=== PATIENT | female | born 1990 | race African-American/Black ===

== ENCOUNTER 2016-08-12 00:04 | Emergency (ER) | payer MEDICAID ==
[2016-08-12] MEDS ORDERED: CEPHALEXIN 500 MG CAPSULE PO ONE (05:31)
--- NOTE | 2016-08-12 05:31 | ER Document Report ---
ED Skin Rash/Insect Bite/Abscs - General Mode of Arrival: Ambulatory Information source: Patient TRAVEL OUTSIDE OF THE [place] IN LAST 30 DAYS: No - HPI Patient complains to provider of: Tender/swollen area - General Chief Complaint: Abscess Stated Complaint: POSSIBLE ABSCESS Time Seen by Provider: 08/12/16 05:22 Notes: Patient is a 25 year old female who presents to the emergency department complaining of an abscess between her buttocks. Patient states she noticed the tender area 3 days ago and squeezed it producing pus and bloody drainage. Patient has been coving the abscess with a band-aid. Patient also complains of vaginal discharge. Patient denies fever. (COLE TAY) - Related Data Allergies/Adverse Reactions: ibuprofen [From Motrin] Allergy (Intermediate, Verified 08/12/16 00:14) rash tramadol [Tramadol] Allergy (Mild, Verified 08/12/16 00:14) rash clindamycin [Clindamycin] Allergy (Verified 08/12/16 00:14) fluoxetine HCl [From Prozac] Allergy (Verified 08/12/16 00:14) hydrocodone bitartrate [From Vicodin] Allergy (Verified 08/12/16 00:14) rash sertraline HCl [From Zoloft] Adverse Reaction (Verified 08/12/16 00:14) Dizziness Sulfa (Sulfonamide Antibiotics) Adverse Reaction (Verified 08/12/16 00:14) rash, swelling Past Medical History - General Information source: Patient - Social History Smoking Status: Current Every Day Smoker Chew tobacco use (# tins/day): No Frequency of alcohol use: None Drug Abuse: None Family History: Reviewed & Not Pertinent Musculoskeltal Medical History: Reports Hx Arthritis, Reports Hx Musculoskeletal Deformity - chronic back pain Skin Medical History: Reports Hx Cellulitis Psychiatric Medical History: Reports: Hx Depression Past Surgical History: Reports: Hx Oral Surgery - Immunizations Immunizations up to date: Yes Hx Diphtheria, Pertussis, Tetanus Vaccination: Yes Hx Pneumococcal Vaccination: 03/10/00 Review of Systems - Review of Systems Constitutional: denies: Fever EENT: No symptoms reported Cardiovascular: No symptoms reported Respiratory: No symptoms reported Gastrointestinal: No symptoms reported Genitourinary: No symptoms reported Female Genitourinary: See HPI, Vaginal discharge Musculoskeletal: No symptoms reported Skin: See HPI, Lesions Hematologic/Lymphatic: No symptoms reported Neurological/Psychological: No symptoms reported -: Yes All other systems reviewed and negative Physical Exam - Vital signs Vitals: Temp Pulse BP Pulse Ox 98.1 F 89 137/72 H 98 08/12/16 00:15 08/12/16 00:15 08/12/16 00:15 08/12/16 00:15 - Notes Notes: GENERAL: Alert, interacts well. No acute distress. Pleasant. HEAD: Normocephalic, atraumatic. EYES: Pupils equal, round, and reactive to light. Extraocular movements intact. ENT: Oral mucosa moist, tongue midline. NECK: Full range of motion. Supple. Trachea midline. LUNGS: No respiratory distress. EXTREMITIES: Moves all 4 extremities spontaneously. NEUROLOGICAL: Alert and oriented x3. Normal speech. PSYCH: Normal affect, normal mood. SKIN: Warm, dry, normal turgor. Slightly indurated area on right buttock around level of rectum that is tender to palpation, no erythema, no fluctuance, no active discharge. (COLE TAY) Does not communicate with the rectum. (ALISA MEADOWS) Course - Re-evaluation Re-evalutation: 08/12/16 05:32 no evidence of abscess remaining, willl treat residual induration as possible remaining cellulitis and treat with keflex. d/c to home. (ALISA MEADOWS) - Vital Signs Vital signs: Temp Pulse Resp BP Pulse Ox 98.1 F 89 137/72 H 98 08/12/16 00:15 08/12/16 00:15 08/12/16 00:15 08/12/16 00:15 Discharge - Discharge Clinical Impression: Cellulitis of right buttock, Elevated blood pressure reading Condition: Stable Disposition: HOME, SELF-CARE Additional Instructions: Epsom Salt Soaks Soak the wound area in a container of warm epsom salt water. If you can't get the wound area into a bucket or knutson, use a folded towel soaked in the epsom salt solution and apply to the area. Use clean hot tap water (about the temperature of a very warm bath), mixing in about one (1) teaspoon for every pint of water. Two gallon --> 16 teaspoons Epsom Salts One gallon --> 8 teaspoons Epsom Salts Two quarts --> 4 teaspoons Epsom Salts One quart --> 2 teaspoons Epsom Salts Soak the wound for about 20 minutes while gently moving it around in the water. Repeat this four (4) times a day. Prescriptions: Cephalexin Monohydrate [Keflex 500 mg Capsule] 500 mg PO QID #28 capsule Scribe Attestation: 08/12/16 06:01 I personally performed the services described in the documentation, reviewed and edited the documentation which was dictated to the scribe in my presence, and it accurately records my words and actions. (ALISA MEADOWS) Scribe Documentation - Scribe Written by Koby:: koby Lee, 08/12/16, 1725 acting as scribe for :: Fany
[2016-08-12 06:34] VITALS: BP 116/74
== END 2016-08-12 05:45 | disposition home or self-care (01) ==
LOC: ER 00:04
DX: L03.317 Cellulitis of buttock (principal); N89.8 Other specified noninflammatory disorders of vagina; R03.0 Elevated blood-pressure reading, without diagnosis of hypertension; F17.200 Nicotine dependence, unspecified, uncomplicated; Z88.6 Allergy status to analgesic agent; Z88.5 Allergy status to narcotic agent; Z88.1 Allergy status to other antibiotic agents; Z88.8 Allergy status to other drugs, medicaments and biological substances
CPT/HCPCS: 99282

== ENCOUNTER 2018-09-21 01:14 | Emergency (ER) | payer MEDICAID ==
--- NOTE | 2018-09-21 02:47 | ER Document Report ---
ED General - General Chief Complaint: Shortness Of Breath Stated Complaint: SHORTNESS OF BREATH Time Seen by Provider: 09/21/18 02:27 Mode of Arrival: Ambulatory Information source: Patient Notes: Patient is a 27-year-old female presents emergency department chief complaint of sudden onset chest pain shortness of breath that woke her up from her sleep approximately 40 minutes prior to arrival. Patient reports chest pain is located on the right side of her chest, worse with a deep breath. She also reports epigastric pain. She denies having history of this in the past. She denies any nausea, vomiting, diarrhea or fevers. She denies any history of DVT or PE, has not had recent surgery, recent travel. TRAVEL OUTSIDE OF THE [place] IN LAST 30 DAYS: No - Related Data Allergies/Adverse Reactions: ibuprofen [From Motrin] Allergy (Intermediate, Verified 09/22/18 07:29) rash tramadol [Tramadol] Allergy (Mild, Verified 09/22/18 07:29) rash clindamycin [Clindamycin] Allergy (Verified 09/22/18 07:29) fluoxetine HCl [From Prozac] Allergy (Verified 09/22/18 07:29) hydrocodone bitartrate [From Vicodin] Allergy (Verified 09/22/18 07:29) rash sertraline HCl [From Zoloft] Adverse Reaction (Verified 09/22/18 07:29) Dizziness Sulfa (Sulfonamide Antibiotics) Adverse Reaction (Verified 09/22/18 07:29) rash, swelling Past Medical History - General Information source: Patient - Social History Smoking Status: Never Smoker Frequency of alcohol use: None Drug Abuse: None Family History: Reviewed & Not Pertinent Renal/ Medical History: Denies: Hx Peritoneal Dialysis Musculoskeletal Medical History: Reports Hx Arthritis, Reports Hx Musculoskeletal Deformity - chronic back pain Skin Medical History: Reports Hx Cellulitis Psychiatric Medical History: Reports: Hx Depression Past Surgical History: Reports: Hx Oral Surgery - Immunizations Immunizations up to date: Yes Hx Diphtheria, Pertussis, Tetanus Vaccination: Yes Hx Pneumococcal Vaccination: 03/10/00 Review of Systems - Review of Systems Constitutional: No symptoms reported EENT: No symptoms reported Cardiovascular: Chest pain Respiratory: No symptoms reported Gastrointestinal: Abdominal pain Genitourinary: No symptoms reported Female Genitourinary: No symptoms reported Musculoskeletal: No symptoms reported Skin: No symptoms reported Hematologic/Lymphatic: No symptoms reported Neurological/Psychological: No symptoms reported Physical Exam - Vital signs Vitals: Temp Pulse Resp BP Pulse Ox 98.0 F 104 H 22 H 124/101 H 97 09/21/18 01:20 09/21/18 01:20 09/21/18 01:20 09/21/18 01:20 09/21/18 01:20 - Notes Notes: PHYSICAL EXAMINATION: GENERAL: Well-appearing, well-nourished and in no acute distress. HEAD: Atraumatic, normocephalic. EYES: Pupils equal round and reactive to light, extraocular movements intact, conjunctiva are normal. ENT: Nares patent, oropharynx clear without exudates. Moist mucous membranes. NECK: Normal range of motion, supple without lymphadenopathy LUNGS: Breath sounds clear to auscultation bilaterally and equal. No wheezes rales or rhonchi. HEART: Regular rate and rhythm without murmurs ABDOMEN: Soft, nondistended abdomen. Tenderness to palpation to the epigastric area and left upper quadrant. No guarding, no rebound. No masses appreciated. Female : No CVA tenderness Musculoskeletal: Normal range of motion, no pitting or edema. No cyanosis. NEUROLOGICAL: Cranial nerves grossly intact. Normal speech, normal gait. Normal sensory, motor exams PSYCH: Normal mood, normal affect. SKIN: Warm, Dry, normal turgor, no rashes or lesions noted. Course - Re-evaluation Re-evalutation: Laboratory 09/21/18 09/21/18 09/21/18 03:10 03:10 03:10 WBC 7.1 RBC 4.16 Hgb 13.1 Hct 37.9 MCV 91 MCH 31.5 MCHC 34.5 RDW 13.1 Plt Count 216 Seg Neutrophils % 58.7 Lymphocytes % 33.8 Monocytes % 6.2 Eosinophils % 0.8 Basophils % 0.5 Absolute Neutrophils 4.2 Absolute Lymphocytes 2.4 Absolute Monocytes 0.4 Absolute Eosinophils 0.1 Absolute Basophils 0.0 D-Dimer Sodium 140.2 Potassium 4.0 Chloride 106 Carbon Dioxide 25 Anion Gap 9 BUN 9 Creatinine 0.83 Est GFR ( Amer) > 60 Est GFR (Non-Af Amer) > 60 Glucose 106 Calcium 9.8 Total Bilirubin 0.7 Direct Bilirubin 0.6 H Neonat Total Bilirubin Not Reportable Neonat Direct Bilirubin Not Reportable Neonat Indirect Bili Not Reportable AST 388 H ALT 465 H Alkaline Phosphatase 153 H Creatine Kinase 111 Troponin I < 0.012 Total Protein 7.2 Albumin 4.2 Lipase 09/21/18 09/21/18 03:10 03:10 WBC RBC Hgb Hct MCV MCH MCHC RDW Plt Count Seg Neutrophils % Lymphocytes % Monocytes % Eosinophils % Basophils % Absolute Neutrophils Absolute Lymphocytes Absolute Monocytes Absolute Eosinophils Absolute Basophils D-Dimer 0.45 Sodium Potassium Chloride Carbon Dioxide Anion Gap BUN Creatinine Est GFR ( Amer) Est GFR (Non-Af Amer) Glucose Calcium Total Bilirubin Direct Bilirubin Neonat Total Bilirubin Neonat Direct Bilirubin Neonat Indirect Bili AST ALT Alkaline Phosphatase Creatine Kinase Troponin I Total Protein Albumin Lipase 159.7 Abdomen Ultrasound 09/21/18 02:45 IMPRESSION: Fatty infiltrative change to the liver. Cholelithiasis. The CBD is prominent at 10 mm. Could consider further assessment with dedicated MRCP or ERCP copyright 2011 [employer]- All Rights Reserved Chest X-Ray 09/21/18 02:45 IMPRESSION: No evidence of acute intrathoracic disease. 09/21/18 06:[address] Herring, general surgery who recommends ordering an MRCP at our facility at this time. Orders placed, patient will be handed off to my colleague, KRISTEN Spence at 0800. - Vital Signs Vital signs: Temp Pulse Resp BP Pulse Ox 98.0 F 104 H 19 118/92 H 97 09/21/18 01:20 09/21/18 01:20 09/21/18 13:00 09/21/18 13:00 09/21/18 13:00 - Laboratory Result Diagrams: 09/21/18 03:10 09/21/18 03:10 Laboratory results interpreted by me: 09/21/18 09/21/18 03:10 08:27 Direct Bilirubin 0.6 H AST 388 H ALT 465 H Alkaline Phosphatase 153 H Urine Bilirubin SMALL H Urine Urobilinogen 4.0 H Discharge - Discharge Clinical Impression: Cholelithiasis, Abdominal pain, Transaminitis Condition: Poor Disposition: AGAINST MEDICAL ADVICE Instructions: Gallbladder Disease ([facility]) Additional Instructions: return if you change your mind about having your gallbladder surgically removed as discussed.
--- NOTE | 2018-09-21 03:13 | RADIOLOGY REPORT (SQ) ---
EXAM DESCRIPTION: X-ray single view chest. CLINICAL HISTORY: 27 years Female, chest pain/sob COMPARISON: PA chests performed on 04/03/2015 and 07/20/2014 TECHNIQUE: Single AP portable x-ray view of the chest performed on 09/21/2018 at 2:57 AM FINDINGS: The lungs are well expanded and are clear. There is no evidence of a pneumothorax. The cardiac silhouette appears slightly prominent likely related to the portable technique. The mediastinal contours are normal. No acute osseous abnormality is identified. No focal soft tissue abnormalities are seen. Lines and tubes: None. IMPRESSION: No evidence of acute intrathoracic disease.
[2018-09-21 03:35] LABS: ABSOLUTE EOSINOPHILS # (AUTO) 0.1 10^3/uL (0.0-0.6); ABSOLUTE LYMPHOCYTES (AUTO) 2.4 10^3/uL (0.5-4.7); ABSOLUTE MONOCYTES (AUTO) 0.4 10^3/uL (0.1-1.4); ABSOLUTE NEUT (AUTO) 4.2 10^3/uL (1.7-8.2); BASOPHILS % (AUTO) 0.5 % (0-2); EOSINOPHILS % (AUTO) 0.8 % (0-6); HEMATOCRIT 37.9 % (36.0-47.0); HEMOGLOBIN 13.1 g/dL (12.0-15.5); LYMPHOCYTES % (AUTO) 33.8 % (13-45); MEAN CORPUSCULAR HEMOGLOBIN 31.5 pg (27.0-33.4); MEAN CORPUSCULAR HGB CONC 34.5 g/dL (32.0-36.0); MEAN CORPUSCULAR VOLUME 91 fl (80-97); MONOCYTES % (AUTO) 6.2 % (3-13); PLATELET COUNT 216 10^3/uL (150-450); RED BLOOD COUNT 4.16 10^6/uL (3.72-5.28); RED CELL DISTRIBUTION WIDTH 13.1 % (11.5-14.0); SEGMENTED NEUTROPHILS % (AUTO) 58.7 % (42-78); TOTAL CELLS COUNTED % (AUTO) 100 %; WHITE BLOOD COUNT 7.1 10^3/uL (4.0-10.5)
[2018-09-21 03:55] LABS: ALANINE AMINOTRANSFERASE 465 U/L (9-52); ALBUMIN 4.2 g/dL (3.5-5.0); ALKALINE PHOSPHATASE 153 U/L (38-126); ANION GAP 9 (5-19); ASPARTATE AMINO TRANSFERASE 388 U/L (14-36); BILIRUBIN,DIRECT 0.6 mg/dL (0.0-0.4); BILIRUBIN,TOTAL 0.7 mg/dL (0.2-1.3); BLOOD UREA NITROGEN 9 mg/dL (7-20); CALCIUM 9.8 mg/dL (8.4-10.2); CARBON DIOXIDE 25 mmol/L (22-30); CHLORIDE 106 mmol/L (98-107); CREATINE KINASE 111 U/L (30-135); GLUCOSE 106 mg/dL (75-110); SODIUM 140.2 mmol/L (137-145); TOTAL PROTEIN 7.2 g/dL (6.3-8.2)
--- NOTE | 2018-09-21 04:26 | RADIOLOGY REPORT (SQ) ---
EXAM DESCRIPTION: US ABDOMEN LIMITED COMPLETED DATE/TME: 09/21/2018 02:45 CLINICAL HISTORY: 27 years, Female, epigastric pain/shortness of breath COMPARISON: None. TECHNIQUE: Limited right upper quadrant ultrasound LIMITATIONS: None. FINDINGS: Diffusely echogenic appearance to the liver consistent with diffuse fatty infiltrative change. Cholelithiasis. No gallbladder wall thickening or pericholecystic fluid. Negative sonographic Briggs sign. The CBD is prominent at 10 mm. The visualized abdominal aorta, inferior vena cava, pancreas, right kidney are unremarkable. No ascites IMPRESSION: Fatty infiltrative change to the liver. Cholelithiasis. The CBD is prominent at 10 mm. Could consider further assessment with dedicated MRCP or ERCP copyright 2010 [employer]- All Rights Reserved
[2018-09-21] MEDS ORDERED: ONDANSETRON HCL INJ/PF 4 MG/2 ML SDV IV ONE ×2 (04:35→08:15)
[2018-09-21] MEDS ORDERED: MORPHINE SULFATE 10 MG/ML INJ IV ONE ×3 (04:35→13:13)
--- NOTE | 2018-09-21 08:18 | ER Document Report ---
Doctor's Note Notes: 09/21/18 08:16 This is a 27-year-old female signed out to me by the overnight [facility] [employer] [place], pending MRCP results after her abdominal ultrasound showed a dilated common bile duct with elevated LFTs for final dispo. General surgery here requested MRCP and to call back if negative. Otherwise if MRCP shows common bile duct stone will likely transfer to a facility that has GI and ERCP capability. Patient was kept n.p.o. Last po intake was 8 PM. please refer to [facility] [employer] [place]'s note for full h and p. as documented, this was my only involvement in pt care. Abdomen Ultrasound 09/21/18 02:45 IMPRESSION: Fatty infiltrative change to the liver. Cholelithiasis. The CBD is prominent at 10 mm. Could consider further assessment with dedicated MRCP or ERCP copyright 2011 [employer]- All Rights Reserved Chest X-Ray 09/21/18 02:45 IMPRESSION: No evidence of acute intrathoracic disease. Abdomen MRI 09/21/18 10:55 IMPRESSION: Cholelithiasis. Mild dilatation of the common bile duct without visualized common bile duct stone. pt's MRCP was completed and showed no CBD stone only cholelithiasis and a mildly dilated cbd per rad and reviewed by me. pt informed of her findings. When pt found out independent crop consultant surgeon was dr anaya she stated due to personal reasons and prior complications after dr anaya did surgery on her grandmother per pt, that she would under no circumstances be operated on by him and asked if another surgeon was available to take out her gb today or if she could be transferred or come back another day. I discussed this with ED attending, dr javier, who advised to call independent crop consultant surgeon, dr anaya, and inform him of this and follow his recommendations. i did speak with independent crop consultant surgeon dr anaya, who advised he was the only surgeon avail at this facility today and that pt needed her gb out. he advised if pt didn't want him to operate on her to achieve this she could be transferred to another facility at her expense or sign out ama and come back another day when he wasn't independent crop consultant. pt didn't want to have to pay for her own transfer to another facility with surgery avail today and signed out AMA. she fully understood the risks of signing out AMA which included worst case scenario being and still signed out AMA despite my best efforts to get her to stay and states she will return tomorrow when another surgeon is on shift to have her gb taken out. pt is of sound mind, appears clinically sober, is able to make her own medical decisions, ambulates with a normal gate, and remained pleasant during her stay. pt signed out AMA. please refer to the signed form in her chart of this. vss. she is otherwise well appearing. has some bouts of apparent pain but is tolerating po. serial abd exams remain benign. labs reviewed and imaging reviewed. case discussed with ed attending, dr javier, who directed and agrees with plan of care. Clinical impression: 1. acute transaminitis 2. acute cholelithiasis 3. acute abdominal pain 4. left against medical advice 5. acute dilatation of common bile duct 09/23/18 20:37 Discharge - Discharge Clinical Impression: Transaminitis, Left against medical advice Cholelithiasis Qualifiers: Cholelithiasis location: gallbladder Cholecystitis presence: with cholecystitis Cholecystitis acuity: acute Biliary obstruction: without biliary obstruction Qualified Code(s): K80.00 - Calculus of gallbladder with acute cholecystitis without obstruction Abdominal pain Qualifiers: Abdominal location: upper abdomen, unspecified Qualified Code(s): R10.10 - Upper abdominal pain, unspecified Condition: Poor Disposition: AGAINST MEDICAL ADVICE Instructions: Gallbladder Disease ([facility]) Additional Instructions: return if you change your mind about having your gallbladder surgically removed as discussed or if you have any new, worsening, or concerning symptoms. f/u with your pcp in 1-2 days. return for any worsening symptoms without fail again as discussed. bland diet. drink plenty of fluids.
[2018-09-21 08:51] LABS: APPEARANCE,URINE CLEAR; BILIRUBIN,URINE SMALL (NEGATIVE); COLOR,URINE AMBER; GLUCOSE, URINE NEGATIVE (NEGATIVE); KETONES,URINE NEGATIVE (NEGATIVE); LEUKOCYTE ESTERASE,URINE NEGATIVE (NEGATIVE); NITRITE,URINE NEGATIVE (NEGATIVE); PROTEIN,URINE NEGATIVE (NEGATIVE); URINE SPECIFIC GRAVITY 1.021
--- NOTE | 2018-09-21 11:33 | RADIOLOGY REPORT (SQ) ---
EXAM DESCRIPTION: MRI ABDOMEN WITHOUT COMPLETED DATE/TIME: 09/21/2018 10:55 am REASON FOR STUDY: MRCP, abd pain, dilated CBD COMPARISON: None. TECHNIQUE: Noncontrast MRCP. Source and MIP images reviewed. LIMITATIONS: Motion. FINDINGS: GALLBLADDER: Gallstones. INTRAHEPATIC DUCTS: Nondilated. EXTRAHEPATIC DUCTS: Common duct 6.5 mm in the pancreatic head. No filling defects. PANCREAS: Generally homogeneous, no gross mass or significant signal alteration. No surrounding infl ammatory changes or fluid. Pancreatic duct is normal. LIVER, SPLEEN, KIDNEYS, ADRENALS: No significant abnormality. VESSELS: No aneurysm. LUNG BASES: Grossly clear. OTHER: No other significant finding. IMPRESSION: Cholelithiasis. Mild dilatation of the common bile duct without visualized common bile duct stone. TECHNICAL DOCUMENTATION: JOB ID: [id number] [employer]- All Rights Reserved Reading location - IP/workstation name: [email or web address]
[2018-09-21] MEDS ORDERED: NICOTINE 21 MG/24 HR PATCH.TD24 TD ONE (13:14)
[2018-09-21 14:13] VITALS: BP 118/92
--- NOTE | 2018-09-22 19:07 | EKG REPORT ---
SEVERITY:- BORDERLINE ECG - SINUS RHYTHM BORDERLINE T ABNORMALITIES, INFERIOR LEADS : Confirmed by: Malik Howe MD 22-Sep-2018 19:06:10
== END 2018-09-21 14:15 | disposition left against medical advice (07) ==
LOC: ER 01:14
DX: K80.20 Calculus of gallbladder without cholecystitis without obstruction (principal); R74.0 Nonspecific elevation of levels of transaminase and lactic acid dehydrogenase [LDH]; R07.9 Chest pain, unspecified; R06.02 Shortness of breath; Z88.6 Allergy status to analgesic agent; Z88.3 Allergy status to other anti-infective agents; Z88.2 Allergy status to sulfonamides
CPT/HCPCS: 93005; 96376; 99285; 96374; 96375; 36415; 82550; 83690; 85025; 81025; 80053; 81001; 84484; 85379; 74181; 71045; 76705; 93010; J2270; J2405; J3490

== ENCOUNTER 2018-09-22 07:28 | Inpatient (IN) | payer MEDICAID ==
[2018-09-22] MEDS ORDERED: SUCCINYLCHOLINE CHLORIDE INJ 200 MG/10 ML VIAL ONE ×2 (08:17→08:19)
[2018-09-22] MEDS ORDERED: ROCURONIUM BROMIDE INJ 50 MG/5 ML VIAL IV ONE (08:17)
--- NOTE | 2018-09-22 09:49 | ER Document Report ---
ED GI/ - General Chief Complaint: Abdominal Pain Stated Complaint: ABDOMINAL PAIN Time Seen by Provider: 09/22/18 09:27 Primary Care Provider: MANJULA CÁRDENAS MD [Primary Care Provider] - Follow up as needed Notes: Patient is complaining of abdominal pains off and on for the past 3 to 4 days. Primarily located in the right upper quadrant of the abdomen. She has not had any significant vomiting or diarrhea. Has not had any fever. Denies chest pains today. Denies any difficulty breathing. Patient was seen here yesterday for this condition and had labs done which showed some modest elevation of her LFTs. She then had an ultrasound of the gallbladder which showed some possible dilatation of the common bile duct so an MRI was performed showing that the patient has cholelithiasis but no stones in the common bile duct. Patient was advised to be evaluated by surgery for possible gallbladder removal. She did not wish to have the surgeon on-call see her, so the patient opted to go home and return today to have a different surgeon evaluate her. Patient says her symptoms have not changed. Still having the same amount of pain. No fevers. TRAVEL OUTSIDE OF THE [place] IN LAST 30 DAYS: No - Related Data Allergies/Adverse Reactions: ibuprofen [From Motrin] Allergy (Intermediate, Verified 09/22/18 07:29) rash tramadol [Tramadol] Allergy (Mild, Verified 09/22/18 07:29) rash clindamycin [Clindamycin] Allergy (Verified 09/22/18 07:29) fluoxetine HCl [From Prozac] Allergy (Verified 09/22/18 07:29) hydrocodone bitartrate [From Vicodin] Allergy (Verified 09/22/18 07:29) rash sertraline HCl [From Zoloft] Adverse Reaction (Verified 09/22/18 07:29) Dizziness Sulfa (Sulfonamide Antibiotics) Adverse Reaction (Verified 09/22/18 07:29) rash, swelling Past Medical History - Social History Smoking Status: Current Every Day Smoker Chew tobacco use (# tins/day): No Frequency of alcohol use: None Drug Abuse: None Family History: Reviewed & Not Pertinent Patient has suicidal ideation: No Patient has homicidal ideation: No Musculoskeletal Medical History: Reports Hx Arthritis, Reports Hx Musculoskeletal Deformity - chronic back pain Skin Medical History: Reports Hx Cellulitis Psychiatric Medical History: Reports: Hx Depression, Other - Patient is an outpatient rehab for substance abuse. She says she has been Past Surgical History: Reports: Hx Oral Surgery - Immunizations Immunizations up to date: Yes Hx Diphtheria, Pertussis, Tetanus Vaccination: Yes Hx Pneumococcal Vaccination: 03/10/00 Review of Systems - Review of Systems Notes: REVIEW OF SYSTEMS: CONSTITUTIONAL : Denies fever. EENT: Denies eye, ear, nose or mouth or throat pain or other symptoms. CARDIOVASCULAR: Denies chest pain. RESPIRATORY: Denies cough, chest congestion, or shortness of breath. GASTROINTESTINAL: See HPI. GENITOURINARY: Denies difficulty or painful urinating, urinary frequency, blood in urine. Patient is on control implant. MUSCULOSKELETAL: Denies back or neck pain. Denies joint pain or swelling. SKIN: Denies rash or skin lesions. NEUROLOGICAL: Denies LOC or altered mental status. Denies headache. Denies sensory loss or motor deficits. ALL OTHER SYSTEMS REVIEWED AND NEGATIVE. Physical Exam - Vital signs Vitals: Temp Pulse Resp BP Pulse Ox 98.2 F 70 16 127/74 H 97 09/22/18 07:47 09/22/18 07:47 09/22/18 07:47 09/22/18 07:47 09/22/18 07:47 Interpretation: Normal Notes: PHYSICAL EXAMINATION: GENERAL: Well-appearing, in no acute distress. Vital signs are all normal. HEAD: Atraumatic, normocephalic. EYES: Pupils equal round and reactive to light, extraocular movements intact. ENT: oropharynx clear without exudates. Moist mucous membranes. NECK: Normal range of motion, supple. LUNGS: Breath sounds clear and equal bilaterally. HEART: Regular rate and rhythm without murmurs. ABDOMEN: Soft, tender right upper quadrant and right side of the abdomen with less tenderness on the left side of the abdomen. No true guarding. No rebound. No masses felt. BACK: No tenderness throughout entire back. EXTREMITIES: Normal range of motion without pain. NEUROLOGICAL: Normal speech, normal gait. Normal sensory, motor, and reflex exams. Awake, alert, and oriented x3. Cranial nerves normal. PSYCH: Normal mood, normal affect. SKIN: Warm, dry, no rashes. Course - Re-evaluation Re-evalutation: 09/22/18 09:[address] Herring, on-call surgeon, who will evaluate patient. Labs are being repeated. Patient is n.p.o. 09/22/18 11:20 Patient's LFTs are rising. Spoke with Dr. Herring who indicated the patient will need ERCP to make sure she does not have a stone causing the bile duct dilatation and the rising LFTs, even though her MRI does not show evidence of stones. Called [facility] for transfer, but they are at capacity and not even excepting names for a waiting list. 09/22/18 12:14 I placed a call to the transfer center at [facility] in [place] to discuss transferring the patient. Soon after that, I was able to contact Dr. Mcrae, local hairspring cutter who does ERCPs, and he said he would take care of that procedure for this patient. Patient will be admitted to the surgery service. 09/22/18 12:52 - Vital Signs Vital signs: Temp Pulse Resp BP Pulse Ox 98.2 F 70 13 121/82 100 09/22/18 07:47 09/22/18 07:47 09/22/18 09:38 09/22/18 09:38 09/22/18 09:38 - Laboratory Result Diagrams: 09/22/18 09:35 09/22/18 09:35 Laboratory results interpreted by me: 09/22/18 09:35 Total Bilirubin 1.5 H Direct Bilirubin 0.8 H AST 417 H ALT 760 H Alkaline Phosphatase 157 H Discharge - Discharge Clinical Impression: Cholelithiasis, Elevated liver function tests Condition: Stable Disposition: ADMITTED INPATIENT Admitting Provider: Surgicalist Unit Admitted: Surgical Floor Referrals: MANJULA CÁRDENAS MD [Primary Care Provider] - Follow up as needed
[2018-09-22 09:53] LABS: ABSOLUTE EOSINOPHILS # (AUTO) 0.1 10^3/uL (0.0-0.6); ABSOLUTE LYMPHOCYTES (AUTO) 2.3 10^3/uL (0.5-4.7); ABSOLUTE MONOCYTES (AUTO) 0.3 10^3/uL (0.1-1.4); ABSOLUTE NEUT (AUTO) 3.7 10^3/uL (1.7-8.2); BASOPHILS % (AUTO) 0.6 % (0-2); EOSINOPHILS % (AUTO) 1.3 % (0-6); HEMATOCRIT 38.8 % (36.0-47.0); HEMOGLOBIN 13.4 g/dL (12.0-15.5); LYMPHOCYTES % (AUTO) 35.2 % (13-45); MEAN CORPUSCULAR HEMOGLOBIN 31.3 pg (27.0-33.4); MEAN CORPUSCULAR HGB CONC 34.6 g/dL (32.0-36.0); MEAN CORPUSCULAR VOLUME 91 fl (80-97); MONOCYTES % (AUTO) 5.2 % (3-13); PLATELET COUNT 226 10^3/uL (150-450); RED BLOOD COUNT 4.29 10^6/uL (3.72-5.28); SEGMENTED NEUTROPHILS % (AUTO) 57.7 % (42-78); TOTAL CELLS COUNTED % (AUTO) 100 %; WHITE BLOOD COUNT 6.5 10^3/uL (4.0-10.5)
[2018-09-22 10:09] LABS: ALANINE AMINOTRANSFERASE 760 U/L (9-52); ALBUMIN 4.4 g/dL (3.5-5.0); ALKALINE PHOSPHATASE 157 U/L (38-126); ANION GAP 9 (5-19); ASPARTATE AMINO TRANSFERASE 417 U/L (14-36); BILIRUBIN,DIRECT 0.8 mg/dL (0.0-0.4); BILIRUBIN,TOTAL 1.5 mg/dL (0.2-1.3); BLOOD UREA NITROGEN 11 mg/dL (7-20); CALCIUM 9.4 mg/dL (8.4-10.2); CARBON DIOXIDE 27 mmol/L (22-30); CHLORIDE 104 mmol/L (98-107); GLUCOSE 89 mg/dL (75-110); LIPASE 115.1 U/L (23-300); POTASSIUM 4.1 mmol/L (3.6-5.0); SODIUM 139.9 mmol/L (137-145); TOTAL PROTEIN 7.6 g/dL (6.3-8.2)
--- NOTE | 2018-09-22 12:46 | PDOC H&P ---
History of Present Illness Admission Date/PCP: MANJULA CÁRDENAS MD 09/22/18 History of Present Illness: ERIS TRUJILLO is a 27 year old isfemalecomplaining of abdominal pains off and on for the past 3 to 4 days. Primarily located in the right upper quadrant of the abdomen. She has not had any significant vomiting or diarrhea. Has not had any fever. Denies chest pains today. Denies any difficulty breathing. Patient was seen here yesterday for this condition and had labs done which showed some modest elevation of her LFTs. She then had an ultrasound of the gallbladder which showed some possible dilatation of the common bile duct so an MRI was performed showing that the patient has cholelithiasis but no stones in the common bile duct. Patient was evaluated by surgery for possible gallbladder removal. She did not wish to have the surgeon on-call see her, so the patient opted to go home and return today to have a different surgeon evaluate her. Patient says her symptoms have not changed. Still having the same amount of pain. No fevers. Past Medical History Musculoskeltal Medical History: Reports: Arthritis [facility] Medical History: Reports: Depression, Other - Patient is an outpatient rehab for substance abuse. She says she has been Social History Smoking Status: Current Every Day Smoker Family History Family History: Reviewed & Not Pertinent Parental Family History Reviewed: Yes Children Family History Reviewed: No Sibling(s) Family History Reviewed.: No Medication/Allergy Home Medications: Buprenorphine HCl 8 mg SL DAILY 09/22/18 Clonidine HCl [Catapres] 0.1 mg PO Q12 09/22/18 Allergies/Adverse Reactions: ibuprofen [From Motrin] Allergy (Intermediate, Verified 09/22/18 07:29) rash tramadol [Tramadol] Allergy (Mild, Verified 09/22/18 07:29) rash clindamycin [Clindamycin] Allergy (Verified 09/22/18 07:29) fluoxetine HCl [From Prozac] Allergy (Verified 09/22/18 07:29) hydrocodone bitartrate [From Vicodin] Allergy (Verified 09/22/18 07:29) rash sertraline HCl [From Zoloft] Adverse Reaction (Verified 09/22/18 07:29) Dizziness Sulfa (Sulfonamide Antibiotics) Adverse Reaction (Verified 09/22/18 07:29) rash, swelling Review of Systems Constitutional: ABSENT: chills, fever(s), headache(s), weight gain, weight loss Ears: ABSENT: hearing changes Cardiovascular: ABSENT: as per HPI, chest pain, dyspnea on exertion, edema, orthropnea, palpitations, other Gastrointestinal: PRESENT: abdominal pain, nausea, vomiting Integumentary: ABSENT: as per HPI, diaphoresis, erythema, lesions, pruritus, rash, wounds, other Neurological: ABSENT: as per HPI, abnormal gait, abnormal movements, abnormal speech, confusion, convulsions, dizziness, focal weakness, frequent falls, lack of coordination, memory loss, numbness, paresthesias, restless legs, syncope, tingling, tremor(s), vertigo, weakness, other Psychiatric: ABSENT: as per HPI, anxiety, depression, hallucinations, homidical ideation, suicidal ideation, other Endocrine: ABSENT: as per HPI, cold intolerance, flushing, heat intolerance, menstrual abnormalities, polydipsia, polyphagia, polyuria, other Hematologic/Lymphatic: ABSENT: as per HPI, easy bleeding, easy bruising, lymphadenopathy, other Allergic/Immunologic: ABSENT: as per HPI, seasonal rhinorrhea, other Physical Exam Vital Signs: Temp Pulse Resp BP Pulse Ox 98.2 F 70 13 121/82 100 09/22/18 07:47 09/22/18 07:47 09/22/18 09:38 09/22/18 09:38 09/22/18 09:38 Intake & Output 09/21/18 09/22/18 09/23/18 06:59 06:59 06:59 Weight 90.9 kg General appearance: PRESENT: mild distress Head exam: PRESENT: normocephalic Eye exam: PRESENT: EOMI Mouth exam: PRESENT: moist Neck exam: PRESENT: full ROM Respiratory exam: PRESENT: clear to auscultation marguerite Cardiovascular exam: PRESENT: RRR Pulses: PRESENT: +2 pedal pulses bilateral GI/Abdominal exam: PRESENT: tenderness - ruq Rectal exam: PRESENT: deferred Extremities exam: PRESENT: full ROM Musculoskeletal exam: PRESENT: full ROM Neurological exam: PRESENT: alert, awake, oriented to person Psychiatric exam: PRESENT: anxious, appropriate affect Focused psych exam: ABSENT: catatonic, delusional, euphoric, flight of ideas, internal stimuli, paranoid, pressured speech, psychomotor agitation, restlessness, other Skin exam: ABSENT: abrasion, cyanosis, dry, erythema, intact, jaundice, mottled, normal color, pallor, petechiae, rash, skin tears, urticaria, vesicles, warm, other Results Laboratory Results: 09/22/18 09:35 09/22/18 09:35 09/22/18 09/22/18 09:35 09:35 WBC 6.5 RBC 4.29 Hgb 13.4 Hct 38.8 MCV 91 MCH 31.3 MCHC 34.6 RDW 13.0 Plt Count 226 Seg Neutrophils % 57.7 Lymphocytes % 35.2 Monocytes % 5.2 Eosinophils % 1.3 Basophils % 0.6 Absolute Neutrophils 3.7 Absolute Lymphocytes 2.3 Absolute Monocytes 0.3 Absolute Eosinophils 0.1 Absolute Basophils 0.0 Sodium 139.9 Potassium 4.1 Chloride 104 Carbon Dioxide 27 Anion Gap 9 BUN 11 Creatinine 0.88 Est GFR ( Amer) > 60 Est GFR (Non-Af Amer) > 60 Glucose 89 Calcium 9.4 Total Bilirubin 1.5 H AST 417 H ALT 760 H Alkaline Phosphatase 157 H Total Protein 7.6 Albumin 4.4 Lipase 115.1 Assessment & Plan - Diagnosis (2) Transaminitis Is this a current diagnosis for this admission?: Yes - Plan Summary Plan Summary: pt with elevated lft's increased in last 24 hrs and dilated cbc with gallstones ruq pain c/w choledocholithiasis plan will admit pt for lap zuleima after ercp pt to have ercp today or tomorrow by gi.
[2018-09-22] MEDS: POTASSI CL 20 MEQ/D5-1/2NS 1L 1,000 ML IV PRN ×2 (14:02→18:36)
[2018-09-22] MEDS: ONDANSETRON HCL INJ/PF 4 MG/2 ML SDV IV PRN (14:02)
[2018-09-22] MEDS: MORPHINE SULFATE 10 MG/ML INJ IV PRN (14:02)
[2018-09-22] MEDS ORDERED: FENTANYL CITRATE INJ/PF 100 MCG/2 ML AMPUL ONE ×2 (16:52→18:12)
[2018-09-22] MEDS ORDERED: MIDAZOLAM 2 MG/2 ML INJ ONE (16:52)
[2018-09-22] MEDS ORDERED: PROPOFOL INJ 200 MG/20 ML VIAL IV ONE (16:53)
[2018-09-22] MEDS ORDERED: ONDANSETRON HCL INJ/PF 4 MG/2 ML SDV ONE (16:53)
[2018-09-22] MEDS ORDERED: DEXAMETHASONE SOD PHOSPHATE INJ 4 MG/1 ML VIAL ONE (16:53)
[2018-09-22] MEDS ORDERED: GLUCAGON,HUMAN RECOMB 1 MG INJ ONE (16:53)
--- NOTE | 2018-09-22 18:30 | PDOC CONSULTATION ---
Consultation Consult Date: 09/22/18 Provider Consulted: CELESTINE BATISTA History of Present Illness Admission Date/PCP: 09/22/18 13:43 MANJULA CÁRDENAS MD History of Present Illness: ERIS TRUJILLO is a 27 year old female patient who was admitted to the emergency room with recurrent abdominal pain, jaundice, gallstones and dilated common bile duct. She has been having recurrent pain for the last 4 days associated with nausea but no vomiting. She was seen in the emergency room yesterday when her transaminases were elevated. She came back today now with a slightly elevated bilirubin. She has no previous history of liver disease. Past Medical History Musculoskeltal Medical History: Reports: Arthritis Psychiatric Medical History: Reports: Depression, Other - Patient is an outpatient rehab for substance abuse. She says she has been Social History Smoking Status: Current Every Day Smoker Family History Family History: Reviewed & Not Pertinent Parental Family History Reviewed: No Children Family History Reviewed: NA Sibling(s) Family History Reviewed.: NA Medication/Allergy Home Medications: Buprenorphine HCl 28 mg SL DAILY MDD 3.5 TAB 09/22/18 Clonidine HCl [Catapres] 0.1 mg PO Q12 09/22/18 Allergies/Adverse Reactions: ibuprofen [From Motrin] Allergy (Intermediate, Verified 09/22/18 07:29) rash tramadol [Tramadol] Allergy (Mild, Verified 09/22/18 07:29) rash clindamycin [Clindamycin] Allergy (Verified 09/22/18 07:29) fluoxetine HCl [From Prozac] Allergy (Verified 09/22/18 07:29) hydrocodone bitartrate [From Vicodin] Allergy (Verified 09/22/18 07:29) rash sertraline HCl [From Zoloft] Adverse Reaction (Verified 09/22/18 07:29) Dizziness Sulfa (Sulfonamide Antibiotics) Adverse Reaction (Verified 09/22/18 07:29) rash, swelling Review of Systems All systems: reviewed and no additional remarkable complaints except as stated Physical Exam Vital Signs: Temp Pulse Resp BP Pulse Ox 98.2 F 70 12 136/84 H 99 09/22/18 07:47 09/22/18 07:47 09/22/18 17:02 09/22/18 17:02 09/22/18 17:26 Intake & Output 09/21/18 09/22/18 09/23/18 06:59 06:59 06:59 Weight 90.9 kg Exam: General: Patient is alert and looks well. HEENT: There is no pallor or jaundice. PERRLA. Oropharynx normal Respiratory: No chest deformity. No respiratory distress. Chest wall palpitation was unremarkable. Breath sounds were normal Cardiovascular: Heart sounds 1 and 2 normal with no murmurs. Abdominal: Not distended. Soft and nontender. Liver and spleen not palpable. No ascites demonstrated. Bowel sounds active. Rectal examination was deferred. Extremities: No edema Neurological: Alert and oriented x4. Grossly nonfocal. Normal speech Skin: No significant rash Psychological: Normal affect Results Laboratory Results: 09/22/18 09:35 09/22/18 09:35 09/22/18 09/22/18 09:35 09:35 WBC 6.5 RBC 4.29 Hgb 13.4 Hct 38.8 MCV 91 MCH 31.3 MCHC 34.6 RDW 13.0 Plt Count 226 Seg Neutrophils % 57.7 Lymphocytes % 35.2 Monocytes % 5.2 Eosinophils % 1.3 Basophils % 0.6 Absolute Neutrophils 3.7 Absolute Lymphocytes 2.3 Absolute Monocytes 0.3 Absolute Eosinophils 0.1 Absolute Basophils 0.0 Sodium 139.9 Potassium 4.1 Chloride 104 Carbon Dioxide 27 Anion Gap 9 BUN 11 Creatinine 0.88 Est GFR ( Amer) > 60 Est GFR (Non-Af Amer) > 60 Glucose 89 Calcium 9.4 Total Bilirubin 1.5 H AST 417 H ALT 760 H Alkaline Phosphatase 157 H Total Protein 7.6 Albumin 4.4 Lipase 115.1 Assessment & Plan - Diagnosis (1) Common bile duct dilatation Is this a current diagnosis for this admission?: Yes Plan: Her symptoms, LFTs and ultrasound does suggest choledocholithiasis. The risk and benefit of an ERCP was explained to her and she is in agreement. She will u ndergo cholecystectomy thereafter (3) Elevated liver function tests Is this a current diagnosis for this admission?: Yes
--- NOTE | 2018-09-22 18:31 | Operative Report ---
Operative Report DATE OF SURGERY: 09/22/18 Operative Report: Pre-op diagnosis: Gallstones and dilated biliary duct Post-op diagnosis: Common bile duct stone Surgery: ERCP with sphincterotomy and balloon stone extraction Medications: As per anesthesia Tissue removed: None Procedure: After informed consent obtained from patient, the throat was sprayed with Hurricane and conscious sedation was achieved. The ERCP endoscope was then inserted into the esophagus blindly and advanced into the stomach. The duodenum was entered and the ampulla was identified. Using the triple-lumen sphincterotomy catheter the common bile duct was freely cannulated. A cholangiogram was obtained which showed possible filling defect in the distal common bile duct. The common bile duct and intrahepatic ducts did not appear dilated. A good sized sphincterotomy was then performed using the endocut mode. The catheter was removed over the guidewire before a 9-12 mm balloon catheter was inserted. The balloon was inflated to 12 mm in the proximal common bile duct and pulled down the duct. A 6 mm yellow stone was extracted. The duct was swept one more time. A balloon occlusion cholangiogram was normal. The pancreatic duct was intentionally not cannulated. Patient tolerated procedure well. Findings Common bile duct: Mildly dilated. Small stone extracted Intrahepatic ducts: Normal Pancreatic duct: Not cannulated Plan: Proceed with cholecystectomy OPERATION: .
[2018-09-22] MEDS ORDERED: DIPHENHYDRAMINE HCL 50 MG/ML VIAL IV PRN (18:45)
[2018-09-22] MEDS ORDERED: FENTANYL CITRATE INJ/PF 100 MCG/2 ML AMPUL IV PRN ×3 (18:45)
[2018-09-22] MEDS ORDERED: MORPHINE SULFATE 10 MG/ML INJ IV PRN (18:45)
[2018-09-22] MEDS ORDERED: OXYCODONE-ACETAMINOPHEN 5-325 MG TABLET PO PRN ×2 (18:45)
[2018-09-22] MEDS ORDERED: PROMETHAZINE HCL INJ 25 MG/1 ML VIAL IV PRN ×2 (18:45)
[2018-09-22] MEDS ORDERED: MEPERIDINE HCL/PF INJ 25 MG/1 ML DISP.SYRIN IV PRN (18:45)
[2018-09-22] MEDS ORDERED: ACETAMINOPHEN 1,000 MG/100 ML RTUPB IV ONE (18:54)
[2018-09-22] MEDS: FAMOTIDINE INJ/PF 20 MG/2 ML SDV IV SCH (21:22)
[2018-09-23] MEDS: POTASSI CL 20 MEQ/D5-1/2NS 1L 1,000 ML IV PRN ×2 (02:08→10:02)
[2018-09-23] MEDS: ONDANSETRON HCL INJ/PF 4 MG/2 ML SDV IV PRN (02:08)
[2018-09-23] MEDS: MORPHINE SULFATE 10 MG/ML INJ IV PRN ×2 (02:09→09:53)
[2018-09-23 06:28] LABS: ABSOLUTE BASOPHILS # (AUTO) 0.1 10^3/uL (0.0-0.2); ABSOLUTE LYMPHOCYTES (AUTO) 1.2 10^3/uL (0.5-4.7); ABSOLUTE MONOCYTES (AUTO) 0.3 10^3/uL (0.1-1.4); BASOPHILS % (AUTO) 0.5 % (0-2); HEMATOCRIT 42.2 % (36.0-47.0); HEMOGLOBIN 14.6 g/dL (12.0-15.5); LYMPHOCYTES % (AUTO) 12.9 % (13-45); MEAN CORPUSCULAR HEMOGLOBIN 31.4 pg (27.0-33.4); MEAN CORPUSCULAR HGB CONC 34.6 g/dL (32.0-36.0); MEAN CORPUSCULAR VOLUME 91 fl (80-97); MONOCYTES % (AUTO) 2.6 % (3-13); PLATELET COUNT 236 10^3/uL (150-450); RED BLOOD COUNT 4.66 10^6/uL (3.72-5.28); RED CELL DISTRIBUTION WIDTH 13.2 % (11.5-14.0); TOTAL CELLS COUNTED % (AUTO) 100 %; WHITE BLOOD COUNT 9.6 10^3/uL (4.0-10.5)
[2018-09-23 06:51] LABS: ALANINE AMINOTRANSFERASE 583 U/L (9-52); ALBUMIN 4.6 g/dL (3.5-5.0); ALKALINE PHOSPHATASE 146 U/L (38-126); ANION GAP 11 (5-19); ASPARTATE AMINO TRANSFERASE 189 U/L (14-36); BILIRUBIN,DIRECT 0.5 mg/dL (0.0-0.4); BLOOD UREA NITROGEN 8 mg/dL (7-20); CARBON DIOXIDE 24 mmol/L (22-30); CHLORIDE 105 mmol/L (98-107); GLUCOSE 134 mg/dL (75-110); LIPASE 78.9 U/L (23-300); POTASSIUM 4.8 mmol/L (3.6-5.0); SODIUM 139.5 mmol/L (137-145); TOTAL PROTEIN 7.9 g/dL (6.3-8.2)
[2018-09-23] MEDS: FAMOTIDINE INJ/PF 20 MG/2 ML SDV IV SCH (09:53)
--- NOTE | 2018-09-23 10:08 | RADIOLOGY REPORT (SQ) ---
EXAM DESCRIPTION: NO CHG FLUORO; ENDO CATH/BILIARY DUCT COMPLETED DATE/TIME: 09/22/2018 6:55 pm; 09/22/2018 7:04 pm REASON FOR STUDY: ERCP IN OR COMPARISON: None. FLUOROSCOPY TIME: 1.3 minutes 6 images saved to PACS. TECHNIQUE: Intra-operative images acquired during surgical procedure to evaluate progress. NUMBER OF IMAGES: 6 LIMITATIONS: None. FINDINGS: Patient undergoing endoscopic biliary manipulation. Please correlate with operative note. IMPRESSION: IMAGE(S) OBTAINED DURING PROCEDURE. COMMENT: Quality ID 145: Final reports for procedures using fluoroscopy that document radiation exp osure indices, or exposure time and number of fluorographic images (if radiation exposure indices are not available) Please consult full operative report of the attending physician for description of the procedure. TECHNICAL DOCUMENTATION: JOB ID: [id number] [employer]- All Rights Reserved Reading location - IP/workstation name: [email or web address]
--- NOTE | 2018-09-23 10:08 | RADIOLOGY REPORT (SQ) ---
EXAM DESCRIPTION: NO CHG FLUORO; ENDO CATH/BILIARY DUCT COMPLETED DATE/TIME: 09/22/2018 6:55 pm; 09/22/2018 7:04 pm REASON FOR STUDY: ERCP IN OR COMPARISON: None. FLUOROSCOPY TIME: 1.3 minutes 6 images saved to PACS. TECHNIQUE: Intra-operative images acquired during surgical procedure to evaluate progress. NUMBER OF IMAGES: 6 LIMITATIONS: None. FINDINGS: Patient undergoing endoscopic biliary manipulation. Please correlate with operative note. IMPRESSION: IMAGE(S) OBTAINED DURING PROCEDURE. COMMENT: Quality ID [id number]: Final reports for procedures using fluoroscopy that document radiation exp osure indices, or exposure time and number of fluorographic images (if radiation exposure indices are not available) Please consult full operative report of the attending physician for description of the procedure. TECHNICAL DOCUMENTATION: JOB ID: [id number] [employer]- All Rights Reserved Reading location - IP/workstation name: [email or web address]
[2018-09-23] MEDS ORDERED: FENTANYL CITRATE INJ/PF 100 MCG/2 ML AMPUL ONE (11:03)
[2018-09-23] MEDS ORDERED: DEXAMETHASONE SOD PHOSPHATE INJ 4 MG/1 ML VIAL ONE (11:03)
[2018-09-23] MEDS ORDERED: MIDAZOLAM 2 MG/2 ML INJ ONE (11:03)
[2018-09-23] MEDS ORDERED: ONDANSETRON HCL INJ/PF 4 MG/2 ML SDV ONE (11:03)
[2018-09-23] MEDS ORDERED: HYDROMORPHONE HCL INJ/PF 2 MG/ML AMPULE ONE (11:03)
[2018-09-23] MEDS ORDERED: PROPOFOL INJ 200 MG/20 ML VIAL IV ONE (11:04)
--- NOTE | 2018-09-23 12:26 | PDOC PROGRESS REPORT ---
Subjective Progress Note for:: 09/23/18 Subjective:: This is a 27-year-old female status post ERCP for choledocholithiasis. The patient reports continued epigastric abdominal pain today. Her pain is 5 out of 10. It is constant. Pain medicine makes it better. She denies fevers, chills, chest pain, shortness of breath, nausea, vomiting, dizziness, orthostasis, blurry vision. Reason For Visit: CHOLELITHIASIS Physical Exam Vital Signs: Temp Pulse Resp BP Pulse Ox 98.5 F 77 14 126/71 H 97 09/23/18 11:21 09/23/18 11:21 09/23/18 11:21 09/23/18 11:21 09/23/18 11:21 Intake & Output 09/22/18 09/23/18 09/24/18 06:59 06:59 06:59 Intake Total 350 988 Balance 350 988 Weight 90 kg General appearance: PRESENT: no acute distress, obese Head exam: PRESENT: atraumatic, normocephalic Eye exam: PRESENT: EOMI, PERRLA. ABSENT: scleral icterus Mouth exam: PRESENT: moist, neck supple Neck exam: ABSENT: meningismus, tenderness, thyromegaly, tracheal deviation Respiratory exam: PRESENT: chest wall tenderness, unlabored. ABSENT: clear to auscultation marguerite, tachypnea, wheezes Cardiovascular exam: PRESENT: RRR Pulses: PRESENT: normal radial pulses GI/Abdominal exam: PRESENT: soft, tenderness - Mild epigastric/right upper quadrant tenderness.. ABSENT: distended Rectal exam: PRESENT: deferred Extremities exam: ABSENT: clubbing Musculoskeletal exam: ABSENT: deformity Neurological exam: PRESENT: alert, awake, oriented to person, oriented to place, oriented to time, oriented to situation Psychiatric exam: ABSENT: agitated, anxious, depressed Focused psych exam: ABSENT: delusional Skin exam: ABSENT: cyanosis, erythema, jaundice Results Laboratory Results: 09/23/18 05:53 09/23/18 05:53 09/23/18 09/23/18 09/23/18 05:53 05:53 05:53 WBC 9.6 RBC 4.66 Hgb 14.6 Hct 42.2 MCV 91 MCH 31.4 MCHC 34.6 RDW 13.2 Plt Count 236 Seg Neutrophils % 84.0 H Lymphocytes % 12.9 L Monocytes % 2.6 L Eosinophils % 0.0 Basophils % 0.5 Absolute Neutrophils 8.0 Absolute Lymphocytes 1.2 Absolute Monocytes 0.3 Absolute Eosinophils 0.0 Absolute Basophils 0.1 Sodium 139.5 Potassium 4.8 Chloride 105 Carbon Dioxide 24 Anion Gap 11 BUN 8 Creatinine 0.82 Est GFR ( Amer) > 60 Est GFR (Non-Af Amer) > 60 Glucose 134 H Calcium 10.0 Total Bilirubin 1.0 AST 189 H ALT 583 H Alkaline Phosphatase 146 H Total Protein 7.9 Albumin 4.6 Lipase 78.9 Serum HCG, Qual NEGATIVE Impressions: Catheter Placement 09/22/18 00:00 IMPRESSION: IMAGE(S) OBTAINED DURING PROCEDURE. Fluoroscopy 09/22/18 00:00 IMPRESSION: IMAGE(S) OBTAINED DURING PROCEDURE. Assessment & Plan - Diagnosis (1) Choledocholithiasis Is this a current diagnosis for this admission?: Yes - Plan Summary Plan Summary: This is a 27-year-old female with choledocholithiasis, status post ERCP. Patient will require cholecystectomy to ensure that her choledocholithiasis does not recur. Plan to perform this today. The patient has agreed to this. Risks/benefits discussed, informed consent obtained, and all questions answered.
[2018-09-23] MEDS ORDERED: BUPIVACAINE HCL 0.25 % INJ/PF (2.5 MG/1 ML) 30 ML VIAL ONE (13:23)
[2018-09-23] MEDS ORDERED: MEPERIDINE HCL/PF INJ 25 MG/1 ML DISP.SYRIN IV PRN (13:55)
[2018-09-23] MEDS ORDERED: OXYCODONE-ACETAMINOPHEN 5-325 MG TABLET PO PRN ×3 (13:55→16:00)
[2018-09-23] MEDS ORDERED: ONDANSETRON HCL INJ/PF 4 MG/2 ML SDV IV PRN (13:55)
[2018-09-23] MEDS ORDERED: FENTANYL CITRATE INJ/PF 100 MCG/2 ML AMPUL IV PRN ×3 (13:55)
[2018-09-23] MEDS ORDERED: DIPHENHYDRAMINE HCL 50 MG/ML VIAL IV PRN (13:55)
[2018-09-23] MEDS ORDERED: PROMETHAZINE HCL INJ 25 MG/1 ML VIAL IV PRN (13:55)
[2018-09-23] MEDS ORDERED: MORPHINE SULFATE 10 MG/ML INJ IV PRN ×2 (13:55→16:00)
[2018-09-23] MEDS ORDERED: CEFOXITIN SODIUM 2 GM in DEXTROSE 5%-WATER 100 ML IV ONE (14:15)
--- NOTE | 2018-09-23 15:00 | Operative Report ---
Nonrecallable Operative Report DATE OF SURGERY: 09/23/18 PREOPERATIVE DIAGNOSIS: Choledocholithiasis POSTOPERATIVE DIAGNOSIS: Same as above OPERATION: Laparoscopic cholecystectomy SURGEON: REENA DAS ANESTHESIA: GA TISSUE REMOVED OR ALTERED: Gallbladder COMPLICATIONS: None apparent ESTIMATED BLOOD LOSS: Minimal PROCEDURE: Procedure in detail: After informed consent was obtained, the patient was brought to the operating room and laid in the supine position. The area of the abdomen was prepped and draped in a normal sterile fashion. A 15 blade scalpel was used to create a supraumbilical incision. This was deepened using sharp and blunt dissection. The cicatrix was identified, grasped with a Clement clamp, and retracted upwards. The linea alba fascia was incised sharply, the abdomen was entered sharply. The balloon trocar was inserted, and pneumoperitoneum was achieved. A subxiphoid 5 mm port was placed under direct laparoscopic visualization. 2 more 5 mm ports were placed in the right upper quadrant in similar fashion. Atraumatic graspers were placed through the 5 mm ports. The gallbladder was retracted cephalad and laterally. Dissection was begun in the triangle of Calot. The cystic duct and cystic artery were fully visualized and skeletonized, seeing the liver through the triangle. Once the critical view of safety was obtained, the cystic duct and cystic artery were clipped and cut with laparoscopic instruments. The gallbladder was then removed from the liver using Bovie electrocautery. The gallbladder was placed into an Endo Catch bag and pulled out of the umbilicus. The camera was reinserted. The hilum was inspected. It was found to be free of any leakage of blood or bile. Once this was confirmed, the 5 mm trochars were removed under direct laparoscopic visualization. The supraumbilical port was removed, and pneumoperitoneum was relieved. The supraumbilical fascia was closed using 0 Vicryl suture in [id number] fashion. The overlying skin was closed using 4-0 Vicryl Rapide suture in subcuticular fashion. All sponge, instrument, needle counts were correct x2. Condition: Stable.
[2018-09-23] MEDS ORDERED: ACETAMINOPHEN 1,000 MG/100 ML RTUPB IV ONE (15:08)
--- NOTE | 2018-09-23 19:51 | PDOC DISCHARGE SUMMARY ---
General - Admit/Disc Date/PCP Admission Date/Primary Care Provider: 09/22/18 13:43 MANJULA CÁRDENAS MD Discharge Date: 09/23/18 - Discharge Diagnosis (1) Choledocholithiasis Is this a current diagnosis for this admission?: Yes - Additional Information Resuscitation Status: Full Code Discharge Diet: As Tolerated Discharge Activity: Balance Activity w/Rest, No Lifting Over 10 Pounds, No Lifting/Push/Pulling, No tub bath Home Medications: Buprenorphine HCl 28 mg SL DAILY MDD 3.5 TAB 09/22/18 Clonidine HCl [Catapres] 0.1 mg PO Q12 09/22/18 History of Present Illness History of Present Illness: ERIS TRUJILLO is a 27 year old female admitted with abdominal pain and choledocholithiasis. Hospital Course Hospital Course: The patient was admitted to the hospital, and underwent ERCP. This was succes sful. The following day, she was taken for laparoscopic cholecystectomy. This was also successful. The afternoon of surgery, the patient was ambulating, tolerating a diet, and she was requesting discharge home. At this time it was felt that she was medically fit for discharge. Physical Exam Vital Signs: Temp Pulse Resp BP Pulse Ox 99 F 92 16 127/64 H 99 09/23/18 18:15 09/23/18 18:15 09/23/18 18:15 09/23/18 18:15 09/23/18 18:15 Intake & Output 09/22/18 09/23/18 09/24/18 06:59 06:59 06:59 Intake Total 350 3548 Output Total 1010 Balance 350 2538 Weight 90 kg Results Laboratory Results: 09/23/18 05:53 09/23/18 05:53 09/23/18 09/23/18 09/23/18 05:53 05:53 05:53 WBC 9.6 RBC 4.66 Hgb 14.6 Hct 42.2 MCV 91 MCH 31.4 MCHC 34.6 RDW 13.2 Plt Count 236 Seg Neutrophils % 84.0 H Lymphocytes % 12.9 L Monocytes % 2.6 L Eosinophils % 0.0 Basophils % 0.5 Absolute Neutrophils 8.0 Absolute Lymphocytes 1.2 Absolute Monocytes 0.3 Absolute Eosinophils 0.0 Absolute Basophils 0.1 Sodium 139.5 Potassium 4.8 Chloride 105 Carbon Dioxide 24 Anion Gap 11 BUN 8 Creatinine 0.82 Est GFR ( Amer) > 60 Est GFR (Non-Af Amer) > 60 Glucose 134 H Calcium 10.0 Total Bilirubin 1.0 AST 189 H ALT 583 H Alkaline Phosphatase 146 H Total Protein 7.9 Albumin 4.6 Lipase 78.9 Serum HCG, Qual NEGATIVE Impressions: Catheter Placement 09/22/18 00:00 IMPRESSION: IMAGE(S) OBTAINED DURING PROCEDURE. Fluoroscopy 09/22/18 00:00 IMPRESSION: IMAGE(S) OBTAINED DURING PROCEDURE. Qualifiers - * PATIENT BEING DISCHARGED WITH ANY OF THE FOLLOWING DIAGNOSIS: No Acute Heart Failure - Is this a Heart Failure Patient?: No Plan Discharge Plan: Discharge home. Diet as tolerated. Activity: No lifting greater than 10 pounds x 2 weeks. Follow-up with [facility] in 7 to 10 days. Percocet 5/3 2 5 mg p.o. every 6 hours as needed for pain. Time Spent: Less than 30 Minutes
[2018-09-23 20:32] VITALS: BP 131/64
== END 2018-09-23 20:57 | disposition home or self-care (01) | DRG 419 ==
LOC: ER 07:28 → EH 13:43 → 5 20:51
PROVIDERS: ADMIT Surgery; ATTEND Surgery
PROC: 0FC98ZZ Extirpation of Matter from Common Bile Duct, Via Natural or Artificial Opening Endoscopic (ICD-10-PCS; 2018-09-22 17:56)
PROC: 0FT44ZZ Resection of Gallbladder, Percutaneous Endoscopic Approach (ICD-10-PCS; principal; 2018-09-23 13:00)
DX: K80.20 Calculus of gallbladder without cholecystitis without obstruction (principal); Z88.2 Allergy status to sulfonamides; Z88.8 Allergy status to other drugs, medicaments and biological substances; F17.210 Nicotine dependence, cigarettes, uncomplicated; F32.9 Major depressive disorder, single episode, unspecified; Z88.5 Allergy status to narcotic agent; E66.9 Obesity, unspecified; Z88.1 Allergy status to other antibiotic agents; M19.90 Unspecified osteoarthritis, unspecified site
CPT/HCPCS: 36415; 43262; 43264; 732; 74328; 80048; 80053; 80076; 83690; 84703; 85025; 88304; 94799; 99283; J0131; J0330; J1100; J1170; J1610; J2250; J2270; J2405; J2704; J3010; J3480; J3490; S0028

== ENCOUNTER → 2019-04-26 | Outpatient (CLI) | payer MEDICAID ==
--- NOTE | 2019-04-26 15:11 | RADIOLOGY REPORT (SQ) ---
EXAM DESCRIPTION: HIP RIGHT AP/LATERAL COMPLETED DATE/TIME: 04/26/2019 10:50 am REASON FOR STUDY: CHRONIC RIGHT HIP PAIN, LUMBAGO WITH SCIATICA, RIGHT SIDE M25.551 PAIN IN RIGHT H IP COMPARISON: None. NUMBER OF VIEWS: Two views. TECHNIQUE: AP pelvis and additional frog-leg view of the right hip. LIMITATIONS: None. FINDINGS: MINERALIZATION: Normal. RIGHT HIP: No fracture or dislocation. No worrisome bone lesions. No contour deformity. No joint sp rosario narrowing. LEFT HIP: No fracture or dislocation. No worrisome bone lesions. PUBIS AND ISCHIUM: No fracture. PELVIS: No fracture. SACRUM: No fracture or dislocation. No worrisome bone lesions. LOWER LUMBAR SPINE: No fracture or dislocation. No worrisome bone lesions. No significant disc disea se. SOFT TISSUES: No findings. OTHER: No other significant finding. IMPRESSION: NEGATIVE STUDY OF THE RIGHT HIP. NO EXPLANATION FOR PAIN. TECHNICAL DOCUMENTATION: JOB ID: [id number] [employer]- All Rights Reserved Reading location - IP/workstation name: [email or web address]
--- NOTE | 2019-04-26 15:12 | RADIOLOGY REPORT (SQ) ---
EXAM DESCRIPTION: LUMBAR SPINE COMPLETE COMPLETED DATE/TIME: 04/26/2019 10:50 am REASON FOR STUDY: CHRONIC RIGHT HIP PAIN, LUMBAGO WITH SCIATICA, RIGHT SIDE M25.551 PAIN IN RIGHT H IP COMPARISON: 03/10/2015 NUMBER OF VIEWS: Five views including obliques. TECHNIQUE: AP, lateral, oblique, and sacral radiographic images acquired of the lumbar spine. LIMITATIONS: None. FINDINGS: MINERALIZATION: Normal. SEGMENTATION: Normal. No transitional anatomy. ALIGNMENT: Normal. VERTEBRAE: Maintained height. No fracture or worrisome bone lesion. DISCS: Preserved height. No significant osteophytes or end plate irregularity. POSTERIOR ELEMENTS: Pedicles and facets are intact. No pars defect or posterior arch defects. HARDWARE: None in the spine. PARASPINAL SOFT TISSUES: Normal. PELVIS: Intact as visualized. No fractures or worrisome bone lesions. SI joints intact. OTHER: No other significant finding. IMPRESSION: NORMAL 5 VIEW LUMBAR SPINE. TECHNICAL DOCUMENTATION: JOB ID: [id number] [employer]- All Rights Reserved Reading location - IP/workstation name: [email or web address]
== END ==
LOC: OD 10:34
PROVIDERS: ATTEND Nurse Practitioner Family
DX: M54.41 Lumbago with sciatica, right side (principal); M25.551 Pain in right hip
CPT/HCPCS: 72110

== ENCOUNTER → 2019-05-05 | Outpatient (CLI) | payer MEDICAID ==
--- NOTE | 2019-05-05 10:30 | RADIOLOGY REPORT (SQ) ---
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 TECHNIQUE: Sagittal and Axial imaging includes T1, T2, STIR and gradient echo sequences. Coronal T2/ HASTE imaging. LIMITATIONS: None. FINDINGS: VISUALIZED UPPER ABDOMEN: Limited evaluation. No acute or suspicious findings suggested. SEGMENTATION: No transitional anatomy. The lowest well-developed disc space is labeled L5-S1. ALIGNMENT: Anatomic. VERTEBRAE: Intact. BONE MARROW: Normal. No marrow replacement or reactive changes. DISC SIGNAL: Normal. No significant abnormal signal or loss of height. POSTERIOR ELEMENTS: Generally intact. No pars defect evident. HARDWARE: None in the spine. CORD AND CONUS: Normal in size and signal intensity. Conus at the appropriate level. SOFT TISSUES: No aortic aneurysm seen. No bulky retroperitoneal adenopathy or mass. No paraspinal mas s or fluid. L1-L2: No significant spinal stenosis or exit foraminal stenosis. L2-L3: No significant spinal stenosis or exit foraminal stenosis. L3-L4: No significant spinal stenosis or exit foraminal stenosis. L4-L5: No significant spinal stenosis or exit foraminal stenosis. L5-S1: No significant spinal stenosis or exit foraminal stenosis. LOWER THORACIC: Incompletely imaged. No stenosis seen. SACRUM: Visualized upper sacrum intact. OTHER: No other significant findings. IMPRESSION: NORMAL MRI LUMBAR SPINE. TECHNICAL DOCUMENTATION: JOB ID: [id number] 2010 [employer]- All Rights Reserved Reading location - IP/workstation name: [email or web address]
== END ==
LOC: RAD 09:12
PROVIDERS: ATTEND Nurse Practitioner Family
DX: G57.93 Unspecified mononeuropathy of bilateral lower limbs (principal)
CPT/HCPCS: 72148

== ENCOUNTER → 2019-10-11 | Outpatient (CLI) | payer MEDICAID ==
[2019-10-11 09:44] LABS: ALBUMIN 4.1 g/dL (3.5-5.0); ALKALINE PHOSPHATASE 121 U/L (38-126); ANION GAP 6 (5-19); ASPARTATE AMINO TRANSFERASE 40 U/L (14-36); BILIRUBIN,TOTAL 0.3 mg/dL (0.2-1.3); BLOOD UREA NITROGEN 13 mg/dL (7-20); C-REACTIVE PROTEIN 9.6 mg/L (<10.0); CALCIUM 9.7 mg/dL (8.4-10.2); CARBON DIOXIDE 25 mmol/L (22-30); CHLORIDE 107 mmol/L (98-107); GLUCOSE 103 mg/dL (75-110); POTASSIUM 4.3 mmol/L (3.6-5.0); TOTAL PROTEIN 7.2 g/dL (6.3-8.2)
== END ==
LOC: OD 08:21
PROVIDERS: ATTEND Nurse Practitioner Family
DX: M25.50 Pain in unspecified joint (principal); M79.642 Pain in left hand; M79.641 Pain in right hand
CPT/HCPCS: 36415; 80053; 85652; 86140; 86431